=== PATIENT | female | born 1990 | race Two or more races ===

== ENCOUNTER 2018-03-26 11:17 | Emergency (ER) | payer SELFPAY ==
[~2018-03-26] VITALS: Ht 154.9 cm; Wt 49.4 kg
[2018-03-26 11:23] VITALS: BP 101/55
== END 2018-03-26 12:11 | disposition home or self-care (01) ==
LOC: ER 11:35
DX: S80.02XA Contusion of left knee, initial encounter (principal); M25.462 Effusion, left knee; M25.561 Pain in right knee; Z98.890 Other specified postprocedural states; W18.39XA Other fall on same level, initial encounter; Y93.01 Activity, walking, marching and hiking; Y92.89 Other specified places as the place of occurrence of the external cause; Y99.0 Civilian activity done for income or pay
CPT/HCPCS: A4606; Z7610